=== PATIENT | male | born 1955 | race Caucasian/White ===

== ENCOUNTER 2018-05-08 09:06 | Emergency (ER) | payer MEDICARE, OTHER ==
[~2018-05-08] VITALS: Ht 182.9 cm; Wt 84.1 kg
[~2018-05-08 09:06] MED LIST: ATOR20TA66 PO; FOLI1TAB16 PO; PANT40TA4 PO; RIVA20TA PO; THI100T PO
[2018-05-08] MEDS ORDERED: morphine 4 MG/ML inj SYRINge IV ONE ×2 (09:50→11:55)
[2018-05-08] MEDS ORDERED: ondansetron/PF 4mg/2ml inj IV ONE ×2 (09:50→11:55)
[2018-05-08] MEDS ORDERED: famotidine/PF 10 mg/ml inj IV ONE (09:50)
[2018-05-08] MEDS ORDERED: normal saline 1000ML IV soln IVB ONE (09:50)
[2018-05-08 09:52] LABS: BASOPHILS % (AUTO) 0.1 % (0-1); EOSINOPHILS # (AUTO) 0.1 X10'3 (0-0.9); EOSINOPHILS % (AUTO) 1.2 % (0-6); HEMATOCRIT 51.6 % (42.0-52.0); HEMOGLOBIN 17.6 g/dl (14.0-17.9); LYMPHOCYTES # (AUTO) 2.6 X10'3 (1.1-4.8); LYMPHOCYTES % (AUTO) 21.7 % (21-51); MEAN CORPUSCULAR HEMOGLOBIN 31.9 PG (27.0-31.0); MEAN CORPUSCULAR HGB CONC 34.2 % (33.0-36.5); MEAN CORPUSCULAR VOLUME 93.5 FL (78-98); MEAN PLATELET VOLUME 8.4 FL (7.4-10.4); MONOCYTES # (AUTO) 0.8 X10'3 (0-0.9); NEUTROPHILS # (AUTO) 8.3 X10'3 (1.8-7.7); PLATELET COUNT 273 X10'3 (140-440); RED BLOOD COUNT 5.52 X10'6 (4.70-6.10); RED CELL DISTRIBUTION WIDTH 12.3 % (11.5-14.5); WHITE BLOOD COUNT 11.8 X10'3 (4.5-11.0)
[2018-05-08 10:01] LABS: PROTHROMBIN TIME 10.3 SECONDS (9.0-12.0)
[2018-05-08 10:06] LABS: ALANINE AMINOTRANSFERASE 36 U/L (12-78); ALBUMIN 4.2 G/DL (3.4-5.0); ALKALINE PHOSPHATASE 87 IU/L (46-116); ANION GAP 12 (8-16); ASPARTATE AMINO TRANSFERASE 27 U/L (10-37); BILIRUBIN,TOTAL 1.5 MG/DL (0.1-1.0); BLOOD UREA NITROGEN 15 MG/DL (7-18); BUN/CREATININE RATIO 13.3 (5.4-32.0); CALCIUM 9.9 MG/DL (8.5-10.1); CHLORIDE 100 MMOL/L (99-107); CREATININE 1.13 MG/DL (0.60-1.10); ETHANOL < 0.010 GM/DL (0.0-0.010); GLUCOSE 137 MG/DL (70-104); LIPASE 291 U/L (73-393); POTASSIUM 4.7 MMOL/L (3.5-5.1); SODIUM 137 MMOL/L (135-145); TOTAL CARBON DIOXIDE 25.5 MMOL/L (24-32); TOTAL PROTEIN 8.4 G/DL (6.4-8.2); eGFR 66 ML/MIN
[2018-05-08] MEDS ORDERED: PROC25SU31 RC (13:07)
[2018-05-08] MEDS ORDERED: PANT-47 PO (13:07)
[2018-05-08] MEDS ORDERED: HYDR-3965 PO (13:08)
[2018-05-08 13:54] VITALS: BP 119/67
== END 2018-05-08 14:11 | disposition home or self-care (01) ==
LOC: ER 09:06
DX: R10.13 Epigastric pain (principal); R11.10 Vomiting, unspecified; I10 Essential (primary) hypertension; J44.9 Chronic obstructive pulmonary disease, unspecified; M19.90 Unspecified osteoarthritis, unspecified site; F17.200 Nicotine dependence, unspecified, uncomplicated; Z79.899 Other long term (current) drug therapy
CPT/HCPCS: 36415; 76700; 80053; 80320; 83690; 85025; 85610; 96361; 96374; 96375; 96376; 99285; J2270; J2405; J3490; J7030

== ENCOUNTER 2018-07-25 16:53 | Inpatient (IN) | payer MEDICARE, OTHER ==
[~2018-07-25] VITALS: Ht 182.9 cm; Wt 89.5 kg
[~2018-07-25 16:53] MED LIST changes: +PANT-47 PO
[2018-07-25 17:32] LABS: BASOPHILS # (AUTO) 0.1 X10'3 (0-0.2); BASOPHILS % (AUTO) 0.4 % (0-1); EOSINOPHILS % (AUTO) 0.1 % (0-6); HEMATOCRIT 55.4 % (42.0-52.0); LYMPHOCYTES # (AUTO) 1.1 X10'3 (1.1-4.8); LYMPHOCYTES % (AUTO) 8.3 % (21-51); MEAN CORPUSCULAR HGB CONC 33.9 % (33.0-36.5); MEAN CORPUSCULAR VOLUME 94.6 FL (78-98); MEAN PLATELET VOLUME 8.8 FL (7.4-10.4); MONOCYTES # (AUTO) 0.7 X10'3 (0-0.9); NEUTROPHILS # (AUTO) 11.9 X10'3 (1.8-7.7); NEUTROPHILS % (AUTO) 86.2 % (42-75); PLATELET COUNT 271 X10'3 (140-440); RED BLOOD COUNT 5.86 X10'6 (4.70-6.10); WHITE BLOOD COUNT 13.8 X10'3 (4.5-11.0)
[2018-07-25] MEDS ORDERED: morphine 4 MG/ML inj SYRINge IV ONE ×2 (17:35→18:25)
[2018-07-25] MEDS ORDERED: ondansetron/PF 4mg/2ml inj IV ONE (17:35)
[2018-07-25] MEDS ORDERED: normal saline 1000ML IV soln IVB ONE (17:35)
[2018-07-25 17:37] LABS: HEMOGLOBIN 18.8 g/dl (14.0-17.9)
[2018-07-25 17:42] LABS: PARTIAL THROMBOPLASTIN TIME 28 SECONDS (22-32); PROTHROMBIN TIME 10.5 SECONDS (9.0-12.0)
[2018-07-25 17:47] LABS: ALANINE AMINOTRANSFERASE 31 U/L (12-78); ALBUMIN 4.3 G/DL (3.4-5.0); ALKALINE PHOSPHATASE 98 IU/L (46-116); ANION GAP 15 (8-16); ASPARTATE AMINO TRANSFERASE 21 U/L (10-37); BILIRUBIN,TOTAL 1.5 MG/DL (0.1-1.0); BLOOD UREA NITROGEN 15 MG/DL (7-18); BUN/CREATININE RATIO 13.6 (5.4-32.0); CHLORIDE 98 MMOL/L (99-107); GLUCOSE 158 MG/DL (70-104); POTASSIUM 4.5 MMOL/L (3.5-5.1); SODIUM 134 MMOL/L (135-145); TOTAL CARBON DIOXIDE 21.4 MMOL/L (24-32); TOTAL PROTEIN 8.5 G/DL (6.4-8.2); eGFR 68 ML/MIN
[2018-07-25 19:44] LABS: LIPASE 6876 U/L (73-393)
[2018-07-25] MEDS ORDERED: normal saline 1000ml 1,000 ML IV ONE ×2 (20:25)
[2018-07-25] MEDS ORDERED: temazepam 15mg capsule PO PRN (21:00)
[2018-07-25] MEDS ORDERED: LORazepam 2 mg/ml vial IV ONE (21:10)
[2018-07-25] MEDS ORDERED: metoprolol tartrate 1mg/ml inj IV ONE (21:30)
[2018-07-25] MEDS ORDERED: folic acid inj. 2 MG, thiamine inj. 100 MG, MVI, adult No.4 with vit. K 10 ML in dextro... IV SCH ×8 (22:55→23:25)
[2018-07-25] MEDS ORDERED: dicyclomine 10 MG capsule PO PRN (22:55)
[2018-07-25] MEDS ORDERED: morphine 2 MG/ML inj. syringe IV PRN (22:55)
[2018-07-25] MEDS ORDERED: bisacodyl 10mg suppository rectal RC PRN (22:55)
[2018-07-25] MEDS ORDERED: HYDROmorphone inj. 0.5 MG/0.5 ML DISP.SYRIN IV PRN ×2 (22:55)
[2018-07-25] MEDS ORDERED: haloperidol lactate 5mg/ml inj IM PRN (22:55)
[2018-07-25] MEDS ORDERED: acetaminophen 325mg tablet PO PRN ×2 (22:55)
[2018-07-25] MEDS ORDERED: HYDROcodone/acetaminophen 5mg/325mg tablet PO PRN (22:55)
[2018-07-25] MEDS ORDERED: acetaminophen 650mg rectal suppository RC PRN (22:55)
[2018-07-25] MEDS ORDERED: diphenhydrAMINE 50 mg/ml inj IV PRN (22:55)
[2018-07-25] MEDS ORDERED: atenolol 50mg tablet PO SCH (22:55)
[2018-07-25] MEDS ORDERED: thiamine inj. 100 MG in normal saline 100ml IV soln 100 ML IV ONE (22:55)
[2018-07-25] MEDS ORDERED: loperamide 2mg capsule PO ONE (22:55)
[2018-07-25] MEDS ORDERED: cyclobenzaprine 10mg tablet PO PRN (22:55)
[2018-07-25] MEDS ORDERED: metoclopramide 5 mg/ml inj IV PRN (22:55)
[2018-07-25] MEDS ORDERED: mag hydrox/Alum hydrox/simeth 30ml oral suspension PO PRN ×2 (22:55)
[2018-07-25 23:50] LABS: D-DIMER 1.22 MG/L FEU (0-0.50); PARTIAL THROMBOPLASTIN TIME 28 SECONDS (22-32); PROTHROMBIN TIME 10.7 SECONDS (9.0-12.0)
[2018-07-25] MEDS: normal saline 1000ml 1,000 ML IV SCH (23:54)
[2018-07-26 02:10] VITALS: BP 156/96
[2018-07-26] MEDS: normal saline 1000ml 1,000 ML IV SCH ×3 (02:33→21:35)
[2018-07-26] MEDS: morphine 2 MG/ML inj. syringe IV PRN ×2 (02:38→12:16)
[2018-07-26 03:15] VITALS: BP 153/98
[2018-07-26] MEDS ORDERED: diltiazem 5mg/ml 5ml inj. IV ONE ×2 (04:50→04:52)
[2018-07-26] MEDS: LORazepam 2 mg/ml vial IV PRN ×4 (04:58→21:35)
[2018-07-26 05:48] LABS: BASOPHILS % (AUTO) 0.2 % (0-1); EOSINOPHILS % (AUTO) 0.2 % (0-6); HEMATOCRIT 46.7 % (42.0-52.0); LYMPHOCYTES # (AUTO) 0.9 X10'3 (1.1-4.8); LYMPHOCYTES % (AUTO) 6.8 % (21-51); MEAN CORPUSCULAR HEMOGLOBIN 32.3 PG (27.0-31.0); MEAN CORPUSCULAR HGB CONC 34.4 % (33.0-36.5); MEAN CORPUSCULAR VOLUME 93.9 FL (78-98); MONOCYTES # (AUTO) 0.7 X10'3 (0-0.9); MONOCYTES % (AUTO) 5.3 % (2-12); NEUTROPHILS # (AUTO) 11.5 X10'3 (1.8-7.7); NEUTROPHILS % (AUTO) 87.5 % (42-75); PLATELET COUNT 234 X10'3 (140-440); RED BLOOD COUNT 4.97 X10'6 (4.70-6.10); RED CELL DISTRIBUTION WIDTH 13.6 % (11.5-14.5); WHITE BLOOD COUNT 13.1 X10'3 (4.5-11.0)
[2018-07-26 06:03] LABS: ALANINE AMINOTRANSFERASE 20 U/L (12-78); ALBUMIN 3.1 G/DL (3.4-5.0); ALBUMIN/GLOBULIN RATIO 0.9 (1.1-1.5); ALKALINE PHOSPHATASE 75 IU/L (46-116); ANION GAP 8 (8-16); ASPARTATE AMINO TRANSFERASE 19 U/L (10-37); BILIRUBIN,TOTAL 1.5 MG/DL (0.1-1.0); BLOOD UREA NITROGEN 11 MG/DL (7-18); BUN/CREATININE RATIO 13.8 (5.4-32.0); CALCIUM 8.4 MG/DL (8.5-10.1); CHLORIDE 101 MMOL/L (99-107); GLUCOSE 166 MG/DL (70-104); POTASSIUM 3.8 MMOL/L (3.5-5.1); SODIUM 134 MMOL/L (135-145); TOTAL CARBON DIOXIDE 24.9 MMOL/L (24-32); TOTAL PROTEIN 6.6 G/DL (6.4-8.2); eGFR > 90 ML/MIN
[2018-07-26 06:06] LABS: MAGNESIUM 1.6 MG/DL (1.5-2.4); PHOSPHORUS 2.4 MG/DL (2.3-4.5)
[2018-07-26 06:11] LABS: INR 1.1 INR; PROTHROMBIN TIME 10.9 SECONDS (9.0-12.0)
[2018-07-26 06:42] LABS: AMYLASE 914 U/L (25-115); LIPASE 6782 U/L (73-393)
[2018-07-26 08:00] VITALS: BP 140/86
[2018-07-26] MEDS: docusate sod 100mg capsule PO SCH ×2 (09:13→19:18)
[2018-07-26] MEDS: nicotine 21mg patch - 24 hr TD SCH (09:13)
[2018-07-26] MEDS: atenolol 25mg tablet PO SCH (09:13)
[2018-07-26] MEDS: enoxaparin 80mg/0.8ml syringe SUBCUT SCH ×2 (09:14→19:18)
[2018-07-26] MEDS: pantoprazole 40 MG vial IV SCH ×2 (09:25→19:18)
[2018-07-26 12:00] VITALS: BP 135/82
[2018-07-26] MEDS ORDERED: LORazepam 2 mg/ml vial IV PRN (13:10)
[2018-07-26] MEDS ORDERED: folic acid inj. 2 MG, thiamine inj. 100 MG, MVI, adult No.4 with vit. K 10 ML in dextro... IV SCH ×4 (15:00)
[2018-07-26 20:00] VITALS: BP 146/94
[2018-07-27] VITALS: BP 141/91
[2018-07-27] MEDS: morphine 2 MG/ML inj. syringe IV PRN ×4 (01:53→19:56)
[2018-07-27 05:26] LABS: BASOPHILS # (AUTO) 0.2 X10'3 (0-0.2); BASOPHILS % (AUTO) 1.3 % (0-1); EOSINOPHILS # (AUTO) 0.2 X10'3 (0-0.9); EOSINOPHILS % (AUTO) 1.5 % (0-6); HEMATOCRIT 46.2 % (42.0-52.0); HEMOGLOBIN 15.8 g/dl (14.0-17.9); LYMPHOCYTES # (AUTO) 1.9 X10'3 (1.1-4.8); LYMPHOCYTES % (AUTO) 15.7 % (21-51); MEAN CORPUSCULAR HEMOGLOBIN 32.1 PG (27.0-31.0); MEAN CORPUSCULAR HGB CONC 34.3 % (33.0-36.5); MEAN CORPUSCULAR VOLUME 93.5 FL (78-98); MEAN PLATELET VOLUME 9.6 FL (7.4-10.4); MONOCYTES # (AUTO) 0.8 X10'3 (0-0.9); MONOCYTES % (AUTO) 6.9 % (2-12); NEUTROPHILS # (AUTO) 8.9 X10'3 (1.8-7.7); NEUTROPHILS % (AUTO) 74.6 % (42-75); PLATELET COUNT 221 X10'3 (140-440); RED BLOOD COUNT 4.94 X10'6 (4.70-6.10); RED CELL DISTRIBUTION WIDTH 13.1 % (11.5-14.5); WHITE BLOOD COUNT 11.9 X10'3 (4.5-11.0)
[2018-07-27 05:36] LABS: PROTHROMBIN TIME 10.8 SECONDS (9.0-12.0)
[2018-07-27 05:46] LABS: ALANINE AMINOTRANSFERASE 20 U/L (12-78); ALBUMIN 2.9 G/DL (3.4-5.0); ALBUMIN/GLOBULIN RATIO 0.7 (1.1-1.5); ALKALINE PHOSPHATASE 77 IU/L (46-116); AMYLASE 333 U/L (25-115); ANION GAP 7 (8-16); ASPARTATE AMINO TRANSFERASE 17 U/L (10-37); BILIRUBIN,TOTAL 1.8 MG/DL (0.1-1.0); BLOOD UREA NITROGEN 9 MG/DL (7-18); BUN/CREATININE RATIO 11.4 (5.4-32.0); CALCIUM 8.4 MG/DL (8.5-10.1); CHLORIDE 100 MMOL/L (99-107); CREATININE 0.79 MG/DL (0.60-1.10); GLUCOSE 111 MG/DL (70-104); LIPASE 1423 U/L (73-393); MAGNESIUM 1.8 MG/DL (1.5-2.4); PHOSPHORUS 1.7 MG/DL (2.3-4.5); POTASSIUM 3.4 MMOL/L (3.5-5.1); SODIUM 133 MMOL/L (135-145); TOTAL CARBON DIOXIDE 25.9 MMOL/L (24-32); TOTAL PROTEIN 6.8 G/DL (6.4-8.2); eGFR > 90 ML/MIN
[2018-07-27] MEDS: nicotine 21mg patch - 24 hr TD SCH (07:29)
[2018-07-27] MEDS: enoxaparin 80mg/0.8ml syringe SUBCUT SCH ×2 (07:29→20:09)
[2018-07-27] MEDS: atenolol 25mg tablet PO SCH (07:29)
[2018-07-27] MEDS: docusate sod 100mg capsule PO SCH ×2 (07:29→19:56)
[2018-07-27] MEDS: pantoprazole 40 MG vial IV SCH ×2 (07:30→19:56)
[2018-07-27 07:44] VITALS: BP 133/95
[2018-07-27] MEDS ORDERED: potassium Cl 20 mEq SR tablet PO PRN (11:00)
[2018-07-27] MEDS ORDERED: magnesium 4gm in 100ml NS 100 ML IV PRN (11:00)
[2018-07-27] MEDS ORDERED: potassium Cl 40MEQ/NS 500ml 500 ML IV PRN ×2 (11:00)
[2018-07-27] MEDS ORDERED: magnesium Cl slow-release 64mg tablet PO PRN (11:00)
[2018-07-27] MEDS: Neutra Phos packet PO SCH ×2 (11:22→20:10)
[2018-07-27] MEDS: potassium Cl 20 mEq SR tablet PO PRN ×3 (11:22→19:57)
[2018-07-27] MEDS: folic acid inj. 2 MG, thiamine inj. 100 MG, MVI, adult No.4 with vit. K 10 ML in dextro... IV SCH ×4 (11:22)
[2018-07-27 12:00] VITALS: BP 125/90
[2018-07-27] MEDS: normal saline 1000ml 1,000 ML IV SCH (15:45)
[2018-07-27 20:00] VITALS: BP 153/95
[2018-07-28] VITALS: BP 132/86
[2018-07-28] MEDS: normal saline 1000ml 1,000 ML IV SCH ×3 (00:17→20:54)
[2018-07-28] MEDS: morphine 2 MG/ML inj. syringe IV PRN ×5 (00:39→21:11)
[2018-07-28 05:35] LABS: PROTHROMBIN TIME 10.7 SECONDS (9.0-12.0)
[2018-07-28 05:49] LABS: ALANINE AMINOTRANSFERASE 22 U/L (12-78); ALBUMIN 2.7 G/DL (3.4-5.0); ALBUMIN/GLOBULIN RATIO 0.7 (1.1-1.5); ALKALINE PHOSPHATASE 68 IU/L (46-116); AMYLASE 147 U/L (25-115); ANION GAP 9 (8-16); ASPARTATE AMINO TRANSFERASE 15 U/L (10-37); BLOOD UREA NITROGEN 10 MG/DL (7-18); BUN/CREATININE RATIO 12.7 (5.4-32.0); CALCIUM 8.6 MG/DL (8.5-10.1); CHLORIDE 103 MMOL/L (99-107); CREATININE 0.79 MG/DL (0.60-1.10); GLUCOSE 95 MG/DL (70-104); LIPASE 864 U/L (73-393); MAGNESIUM 1.9 MG/DL (1.5-2.4); PHOSPHORUS 2.7 MG/DL (2.3-4.5); POTASSIUM 3.7 MMOL/L (3.5-5.1); SODIUM 136 MMOL/L (135-145); TOTAL PROTEIN 6.5 G/DL (6.4-8.2); eGFR > 90 ML/MIN
[2018-07-28 05:56] LABS: BASOPHILS # (AUTO) 0.1 X10'3 (0-0.2); BASOPHILS % (AUTO) 0.8 % (0-1); EOSINOPHILS # (AUTO) 0.6 X10'3 (0-0.9); EOSINOPHILS % (AUTO) 6.2 % (0-6); HEMATOCRIT 44.5 % (42.0-52.0); HEMOGLOBIN 15.2 g/dl (14.0-17.9); LYMPHOCYTES # (AUTO) 2.1 X10'3 (1.1-4.8); LYMPHOCYTES % (AUTO) 22.7 % (21-51); MEAN CORPUSCULAR HEMOGLOBIN 32.1 PG (27.0-31.0); MEAN CORPUSCULAR HGB CONC 34.1 % (33.0-36.5); MEAN CORPUSCULAR VOLUME 94.2 FL (78-98); MONOCYTES # (AUTO) 0.8 X10'3 (0-0.9); MONOCYTES % (AUTO) 8.4 % (2-12); NEUTROPHILS # (AUTO) 5.8 X10'3 (1.8-7.7); NEUTROPHILS % (AUTO) 61.9 % (42-75); PLATELET COUNT 229 X10'3 (140-440); RED BLOOD COUNT 4.73 X10'6 (4.70-6.10); RED CELL DISTRIBUTION WIDTH 13.1 % (11.5-14.5); WHITE BLOOD COUNT 9.4 X10'3 (4.5-11.0)
[2018-07-28 08:00] VITALS: BP 147/100
[2018-07-28] MEDS: Neutra Phos packet PO SCH ×2 (09:02→13:26)
[2018-07-28] MEDS: docusate sod 100mg capsule PO SCH ×2 (09:02→20:52)
[2018-07-28] MEDS: pantoprazole 40 MG vial IV SCH ×2 (09:02→20:52)
[2018-07-28] MEDS: nicotine 21mg patch - 24 hr TD SCH (09:03)
[2018-07-28] MEDS: enoxaparin 80mg/0.8ml syringe SUBCUT SCH ×2 (09:04→20:52)
[2018-07-28] MEDS: atenolol 25mg tablet PO SCH (09:08)
[2018-07-28] MEDS: folic acid inj. 2 MG, thiamine inj. 100 MG, MVI, adult No.4 with vit. K 10 ML in dextro... IV SCH ×4 (10:33)
[2018-07-28 11:00] VITALS: BP 143/78
[2018-07-28 18:00] VITALS: BP 144/91
[2018-07-28] MEDS ORDERED: HYDROmorphone 1 mg/ml syringe IV PRN ×2 (21:00→21:01)
[2018-07-29] VITALS: BP 147/78
[2018-07-29] MEDS: normal saline 1000ml 1,000 ML IV SCH ×2 (01:23→11:26)
[2018-07-29] MEDS: morphine 2 MG/ML inj. syringe IV PRN ×3 (01:51→11:27)
[2018-07-29 05:33] LABS: ALANINE AMINOTRANSFERASE 24 U/L (12-78); ALBUMIN 2.7 G/DL (3.4-5.0); ALBUMIN/GLOBULIN RATIO 0.7 (1.1-1.5); ALKALINE PHOSPHATASE 71 IU/L (46-116); AMYLASE 140 U/L (25-115); ANION GAP 10 (8-16); ASPARTATE AMINO TRANSFERASE 20 U/L (10-37); BILIRUBIN,TOTAL 0.9 MG/DL (0.1-1.0); BLOOD UREA NITROGEN 7 MG/DL (7-18); BUN/CREATININE RATIO 9.7 (5.4-32.0); CALCIUM 8.6 MG/DL (8.5-10.1); CHLORIDE 103 MMOL/L (99-107); CREATININE 0.72 MG/DL (0.60-1.10); GLUCOSE 101 MG/DL (70-104); LIPASE 849 U/L (73-393); MAGNESIUM 1.8 MG/DL (1.5-2.4); PHOSPHORUS 3.3 MG/DL (2.3-4.5); POTASSIUM 3.4 MMOL/L (3.5-5.1); SODIUM 137 MMOL/L (135-145); TOTAL CARBON DIOXIDE 24.2 MMOL/L (24-32); TOTAL PROTEIN 6.5 G/DL (6.4-8.2); eGFR > 90 ML/MIN
[2018-07-29 05:49] LABS: BASOPHILS # (AUTO) 0.1 X10'3 (0-0.2); BASOPHILS % (AUTO) 1.6 % (0-1); EOSINOPHILS # (AUTO) 0.6 X10'3 (0-0.9); EOSINOPHILS % (AUTO) 7.4 % (0-6); HEMATOCRIT 44.9 % (42.0-52.0); HEMOGLOBIN 15.5 g/dl (14.0-17.9); LYMPHOCYTES # (AUTO) 2.2 X10'3 (1.1-4.8); LYMPHOCYTES % (AUTO) 27.1 % (21-51); MEAN CORPUSCULAR HEMOGLOBIN 32.7 PG (27.0-31.0); MEAN CORPUSCULAR HGB CONC 34.6 % (33.0-36.5); MEAN CORPUSCULAR VOLUME 94.3 FL (78-98); MEAN PLATELET VOLUME 10.3 FL (7.4-10.4); MONOCYTES # (AUTO) 0.7 X10'3 (0-0.9); MONOCYTES % (AUTO) 8.7 % (2-12); NEUTROPHILS # (AUTO) 4.5 X10'3 (1.8-7.7); NEUTROPHILS % (AUTO) 55.2 % (42-75); PLATELET COUNT 243 X10'3 (140-440); RED BLOOD COUNT 4.76 X10'6 (4.70-6.10); RED CELL DISTRIBUTION WIDTH 12.4 % (11.5-14.5); WHITE BLOOD COUNT 8.1 X10'3 (4.5-11.0)
[2018-07-29] MEDS: nicotine 21mg patch - 24 hr TD SCH (07:08)
[2018-07-29] MEDS: magnesium hydroxide 30ml (MOM) UD suspension PO PRN (07:09)
[2018-07-29] MEDS: potassium Cl 20 mEq SR tablet PO PRN ×3 (07:10→15:39)
[2018-07-29] MEDS: pantoprazole 40 MG vial IV SCH ×2 (07:10→20:21)
[2018-07-29] MEDS: enoxaparin 80mg/0.8ml syringe SUBCUT SCH ×2 (07:10→20:21)
[2018-07-29] MEDS: atenolol 25mg tablet PO SCH (07:10)
[2018-07-29] MEDS: docusate sod 100mg capsule PO SCH ×2 (07:10→20:20)
[2018-07-29 07:40] VITALS: BP 139/86
[2018-07-29 08:02] LABS: PROTHROMBIN TIME 10.8 SECONDS (9.0-12.0)
[2018-07-29 10:50] VITALS: BP 130/80
[2018-07-29] MEDS: ondansetron/PF 4mg/2ml inj IV PRN (11:26)
[2018-07-29] MEDS: folic acid inj. 2 MG, thiamine inj. 100 MG, MVI, adult No.4 with vit. K 10 ML in dextro... IV SCH ×4 (11:26)
[2018-07-29] MEDS: HYDROcodone/acetaminophen 10/325mg tab PO PRN ×2 (15:40→20:20)
[2018-07-29] MEDS: diphenhydrAMINE 25mg capsule PO PRN ×2 (17:01→22:55)
[2018-07-29 18:00] VITALS: BP 99/65
[2018-07-30 00:07] VITALS: BP 137/93
[2018-07-30] MEDS: normal saline 1000ml 1,000 ML IV SCH (03:36)
[2018-07-30] MEDS: HYDROcodone/acetaminophen 10/325mg tab PO PRN (04:25)
[2018-07-30] MEDS: ondansetron/PF 4mg/2ml inj IV PRN (04:27)
[2018-07-30] MEDS: magnesium hydroxide 30ml (MOM) UD suspension PO PRN (04:54)
[2018-07-30 06:19] LABS: BASOPHILS % (AUTO) 0.4 % (0-1); EOSINOPHILS # (AUTO) 0.8 X10'3 (0-0.9); EOSINOPHILS % (AUTO) 9.7 % (0-6); HEMATOCRIT 40.1 % (42.0-52.0); HEMOGLOBIN 13.9 g/dl (14.0-17.9); LYMPHOCYTES # (AUTO) 2.5 X10'3 (1.1-4.8); LYMPHOCYTES % (AUTO) 29.4 % (21-51); MEAN CORPUSCULAR HEMOGLOBIN 32.5 PG (27.0-31.0); MEAN CORPUSCULAR HGB CONC 34.8 % (33.0-36.5); MEAN CORPUSCULAR VOLUME 93.3 FL (78-98); MEAN PLATELET VOLUME 9.4 FL (7.4-10.4); MONOCYTES # (AUTO) 0.8 X10'3 (0-0.9); MONOCYTES % (AUTO) 9.4 % (2-12); NEUTROPHILS # (AUTO) 4.3 X10'3 (1.8-7.7); NEUTROPHILS % (AUTO) 51.1 % (42-75); PLATELET COUNT 248 X10'3 (140-440); RED BLOOD COUNT 4.29 X10'6 (4.70-6.10); RED CELL DISTRIBUTION WIDTH 12.6 % (11.5-14.5); WHITE BLOOD COUNT 8.4 X10'3 (4.5-11.0)
[2018-07-30 06:24] LABS: PROTHROMBIN TIME 10.4 SECONDS (9.0-12.0)
[2018-07-30 06:31] LABS: ALANINE AMINOTRANSFERASE 30 U/L (12-78); ALBUMIN 2.6 G/DL (3.4-5.0); ALBUMIN/GLOBULIN RATIO 0.7 (1.1-1.5); ALKALINE PHOSPHATASE 66 IU/L (46-116); AMYLASE 119 U/L (25-115); ANION GAP 7 (8-16); ASPARTATE AMINO TRANSFERASE 23 U/L (10-37); BILIRUBIN,TOTAL 0.6 MG/DL (0.1-1.0); BLOOD UREA NITROGEN 6 MG/DL (7-18); BUN/CREATININE RATIO 6.9 (5.4-32.0); CALCIUM 8.9 MG/DL (8.5-10.1); CHLORIDE 102 MMOL/L (99-107); CREATININE 0.87 MG/DL (0.60-1.10); GLUCOSE 144 MG/DL (70-104); LIPASE 750 U/L (73-393); MAGNESIUM 1.8 MG/DL (1.5-2.4); PHOSPHORUS 4.1 MG/DL (2.3-4.5); POTASSIUM 3.8 MMOL/L (3.5-5.1); SODIUM 137 MMOL/L (135-145); TOTAL CARBON DIOXIDE 27.6 MMOL/L (24-32); TOTAL PROTEIN 6.1 G/DL (6.4-8.2); eGFR 89 ML/MIN
[2018-07-30 07:10] VITALS: BP 120/79
[2018-07-30] MEDS: nicotine 21mg patch - 24 hr TD SCH (08:00)
[2018-07-30] MEDS: docusate sod 100mg capsule PO SCH (08:20)
[2018-07-30] MEDS: pantoprazole 40 MG vial IV SCH (08:20)
[2018-07-30] MEDS: atenolol 25mg tablet PO SCH (08:21)
[2018-07-30] MEDS: enoxaparin 80mg/0.8ml syringe SUBCUT SCH (08:22)
[2018-07-30 11:00] VITALS: BP 127/73
[2018-07-30] MEDS ORDERED: FOLI1TAB16 PO (14:16)
[2018-07-30] MEDS ORDERED: ATEN-168 PO (14:16)
[2018-07-30] MEDS ORDERED: MULT-1179 PO (14:16)
[2018-07-30] MEDS ORDERED: THI100T PO (14:16)
[2018-07-30] MEDS ORDERED: NICO-687 TD (14:16)
[2018-07-31] MEDS ORDERED: folic acid 1mg tablet PO SCH (08:00)
[2018-07-31] MEDS ORDERED: thiamine 100mg tablet PO SCH (08:00)
[2018-07-31] MEDS ORDERED: multivitamins, therapeutics tablet PO SCH (08:00)
== END 2018-07-30 14:53 | disposition home or self-care (01) | DRG 308 ==
LOC: ER 16:54 → ED HOLD 22:54 → EDBEDREQSVC 07-26 01:10 → EDBEDREQ 07-26 01:10 → SUR 3N 07-26 02:05
PROVIDERS: ADMIT Family Medicine; ATTEND Family Medicine
DX: I48.92 Unspecified atrial flutter (principal); K85.20 Alcohol induced acute pancreatitis without necrosis or infection; I16.1 Hypertensive emergency; K86.1 Other chronic pancreatitis; E87.1 Hypo-osmolality and hyponatremia; E87.6 Hypokalemia; F10.20 Alcohol dependence, uncomplicated; I10 Essential (primary) hypertension; J44.9 Chronic obstructive pulmonary disease, unspecified; K76.0 Fatty (change of) liver, not elsewhere classified; M19.90 Unspecified osteoarthritis, unspecified site; R00.0 Tachycardia, unspecified; Z79.899 Other long term (current) drug therapy; Z83.3 Family history of diabetes mellitus
CPT/HCPCS: 36415; 71045; 74176; 80053; 82150; 83605; 83690; 83735; 83880; 84100; 84145; 84484; 85025; 85379; 85610; 85730; 87040; 87070; 93005; 93306; 96361; 96374; 96375; 96376; 99285; C9113; J1170; J1650; J2060; J2270; J2405; J3411; J3490; J7030; J7060; Q0163

== ENCOUNTER 2023-02-24 16:45 | Inpatient (IN) | payer MEDICARE ==
[~2023-02-24] VITALS: Ht 182.9 cm; Wt 92.4 kg
[~2023-02-24 16:45] MED LIST changes: +ATEN-168 PO; -ATOR20TA66 PO; -FOLI1TAB16 PO; +FOLI1TAB27 PO; +MULT-25 PO; +NICO-687 TD; -PANT40TA4 PO; -RIVA20TA PO
[2023-02-24 17:17] LABS: BASOPHILS % (AUTO) 0.2 % (0-1); EOSINOPHILS % (AUTO) 0 % (0-6); HEMOGLOBIN 15.3 g/dl (14.0-17.9); LYMPHOCYTES # (AUTO) 1.2 X10'3 (1.1-4.8); MEAN CORPUSCULAR HEMOGLOBIN 28.9 PG (27.0-31.0); MEAN CORPUSCULAR HGB CONC 32.6 g/dL (33.0-36.5); MEAN CORPUSCULAR VOLUME 88.8 FL (78-98); MEAN PLATELET VOLUME 8.7 FL (7.4-10.4); MONOCYTES # (AUTO) 0.9 X10'3 (0-0.9); NEUTROPHILS # (AUTO) 10.3 X10'3 (1.8-7.7); NEUTROPHILS % (AUTO) 82.8 % (42-75); PLATELET COUNT 195 X10'3 (140-440); RED CELL DISTRIBUTION WIDTH 14.5 % (11.5-14.5); WHITE BLOOD COUNT 12.4 X10'3 (4.5-11.0)
[2023-02-24 17:35] LABS: ALBUMIN 3.2 G/DL (3.4-5.0); ALBUMIN/GLOBULIN RATIO 1.1 (1.1-1.5); ALKALINE PHOSPHATASE 93 IU/L (46-116); ANION GAP 13 (8-16); BILIRUBIN,TOTAL 2.4 MG/DL (0.1-1.0); BLOOD UREA NITROGEN 73 MG/DL (7-18); BUN/CREATININE RATIO 24.4 (10.0-20.0); CALCIUM 8.2 MG/DL (8.5-10.1); CHLORIDE 89 MMOL/L (99-107); CREATININE 2.99 MG/DL (0.60-1.10); ETHANOL < 0.010 GM/DL (0.0-0.010); GLUCOSE 124 MG/DL (70-104); LIPASE 406 U/L (73-393); POTASSIUM 5.2 MMOL/L (3.5-5.1); SODIUM 125 MMOL/L (135-145); TOTAL CARBON DIOXIDE 23.2 MMOL/L (24-32); eGFR 21 ML/MIN
[2023-02-24 18:07] LABS: ALANINE AMINOTRANSFERASE 2953 U/L (12-78); ASPARTATE AMINO TRANSFERASE 3496 U/L (10-37)
[2023-02-25] VITALS (15 sets, daily range): BP systolic 85–114; BP diastolic 40–91
[2023-02-25] MEDS ORDERED: normal saline 1000ml 1,000 ML IV ONE ×3 (00:55→05:00)
[2023-02-25] MEDS ORDERED: ondansetron/PF 4mg/2ml inj IV ONE (02:00)
[2023-02-25] MEDS ORDERED: morphine 2 MG/ML inj. syringe IV ONE (02:00)
[2023-02-25] MEDS ORDERED: piperacillin/tazo 3.375gm/50ml 50 ML IV STA (03:04)
[2023-02-25] MEDS ORDERED: normal saline 1000ml 1,000 ML IV SCH (03:05)
--- NOTE | 2023-02-25 03:31 | NUR ---
ASSUMED CARE OF PT. AFTER RECEIVING REPORT. PT. AWAKE DENIES ANY C/O PAIN AT THIS TIME.NS BOLUS INFUSING VIA IV LAC.
[2023-02-25 04:56] LABS: ALBUMIN 2.8 G/DL (3.4-5.0); ALBUMIN/GLOBULIN RATIO 1.1 (1.1-1.5); ALKALINE PHOSPHATASE 92 IU/L (46-116); BILIRUBIN,TOTAL 2.7 MG/DL (0.1-1.0); TOTAL PROTEIN 5.3 G/DL (6.4-8.2)
[2023-02-25 04:58] LABS: ALANINE AMINOTRANSFERASE 2171 U/L (12-78); ASPARTATE AMINO TRANSFERASE 1769 U/L (10-37)
[2023-02-25 05:13] LABS: BILIRUBIN,DIRECT 1.5 MG/DL (0-0.3)
[2023-02-25] MEDS: NORepinephrine 8mg/ 250ml NS 250 ML IV SCH ×3 (06:09→23:54)
--- NOTE | 2023-02-25 06:12 | NUR ---
hospitalist at bedside - levophed just started by TENNILLE RN - setting up for a central line for ER MD to insert.
[2023-02-25] MEDS ORDERED: pantoprazole 40mg IV 80 MG in normal saline 100ml IV soln 100 ML IV ONE (06:24)
--- NOTE | 2023-02-25 06:57 | NUR ---
CL PLACEMENT CONFIRMED VIA XRAY - PER MD EDITH MONROY TO USE - SWITCHING MEDICATION S TO CENTRAL LINE AT THIS TIME.
--- NOTE | 2023-02-25 07:17 | NUR ---
PT RESTING. AWAITING PROTONIX BOLUS FROM PHARMACY AT THIS TIME.
[2023-02-25] MEDS ORDERED: pantoprazole 40MG/NS 100ML BAG 100 ML IV SCH (07:30)
[2023-02-25] MEDS ORDERED: sod chloride 0.9% 10ml flush syringe IV ONE (08:00)
[2023-02-25] MEDS ORDERED: rocuronium 10mg/ml inj IV ONE (08:00)
[2023-02-25] MEDS ORDERED: etomidate 2mg/ml inj. ONE (08:00)
--- NOTE | 2023-02-25 08:02 | NUR ---
CHIVO AT BEDSIDE FOR EVAL\ADMISSION - REQUESTING REPEAT EKG
--- NOTE | 2023-02-25 09:10 | NUR ---
FAMILY CALLED AND PHONE CALL WAS TRANSFERRED TO PTS ROOM
[2023-02-25 09:28] LABS: ALANINE AMINOTRANSFERASE 1794 U/L (12-78); ALBUMIN 2.4 G/DL (3.4-5.0); ALKALINE PHOSPHATASE 83 IU/L (46-116); ANION GAP 15 (8-16); ASPARTATE AMINO TRANSFERASE 1336 U/L (10-37); BILIRUBIN,TOTAL 2.6 MG/DL (0.1-1.0); BLOOD UREA NITROGEN 90 MG/DL (7-18); BUN/CREATININE RATIO 24.1 (10.0-20.0); CALCIUM 7.7 MG/DL (8.5-10.1); CHLORIDE 94 MMOL/L (99-107); CREATININE 3.74 MG/DL (0.60-1.10); ETHANOL < 0.010 GM/DL (0.0-0.010); GLUCOSE 69 MG/DL (70-104); POTASSIUM 5.6 MMOL/L (3.5-5.1); SODIUM 128 MMOL/L (135-145); TOTAL CARBON DIOXIDE 19.4 MMOL/L (24-32); TOTAL PROTEIN 4.8 G/DL (6.4-8.2); eGFR 16 ML/MIN
[2023-02-25] MEDS ORDERED: acetaminophen 325mg tablet PO PRN (09:30)
[2023-02-25] MEDS: normal saline 1000ml 1,000 ML IV SCH ×3 (09:30→20:43)
[2023-02-25] MEDS ORDERED: potassium Cl 20 mEq SR tablet PO PRN ×2 (09:30)
[2023-02-25] MEDS ORDERED: magnesium Cl slow-release 64mg tablet PO PRN (09:30)
[2023-02-25] MEDS ORDERED: magnesium 4gm in 100ml NS 100 ML IV PRN (09:30)
[2023-02-25] MEDS ORDERED: magnesium 2GM in 50ml NS 50 ML IV PRN (09:30)
[2023-02-25] MEDS ORDERED: magnesium hydroxide 30ml (MOM) UD suspension PO PRN (09:30)
[2023-02-25] MEDS ORDERED: mag hydrox/Alum hydrox/simeth 30ml oral suspension PO PRN (09:30)
[2023-02-25] MEDS ORDERED: ondansetron/PF 4mg/2ml inj IV PRN (09:30)
[2023-02-25] MEDS ORDERED: potassium Cl 40MEQ/1/2NS 520ml 520 ML IV PRN (09:30)
--- NOTE | 2023-02-25 10:00 | NUR ---
Patient arrived to floor and transferred self to ICU bed. Patient placed on monitor with A.Fib RVR 130-150s; on Levophed drip. Patient alert and oriented with abd pain. Pt oriented to room with call light in reach.
[2023-02-25] MEDS ORDERED: amiodarone 150mg/dext, iso-os 100 ML IV ONE (10:30)
[2023-02-25] MEDS ORDERED: sodium polystyrene sulfonate 15gm/60ml oral suspension PO ONE (10:40)
[2023-02-25] MEDS ORDERED: vancomycin 1,750 MG in NS 350ml IV soln IV ONE (11:15)
[2023-02-25] MEDS: amiodarone/D5 360MG/200ML BAG 200 ML IV SCH ×2 (11:22→16:58)
[2023-02-25] MEDS: HYDROmorphone 1 mg/ml syringe IV PRN (11:42)
--- NOTE | 2023-02-25 12:07 | NUR ---
Initial: Per H&P pt admit for septic shock most likely d/t spontaneous bacterial peritonitis, ascites, NEAL, and shock liver. Per IR has been consulted for paracentesis and goat farmer to be consulted. Diet has just been advanced to regular from NPO, pending first meal. No documented BM though pt just admitted and with routine bowel care available. Will continue to follow closely and make recommendations as appropriate pending trends in PO intake. Recommendations: 1) Continue regular diet; change to Na restricted diet once serum Na is WNL to assist with prevention of fluid retention with ascites 2) Monitor need for ONS/additional protein 3) Routine bowel care 4) Scaled weight this admit; subsequent weekly scaled weights Addendum: 02/25/23 at [address] Amended: Links added.
[2023-02-25] MEDS ORDERED: NO HOME MEDS (12:29)
[2023-02-25 12:48] LABS: ABG BASE EXCESS -13.5 mmol/L (-2.0-2.0); ABG HCO3 11.1 mmol/L (22.0-26.0); ABG OXYGEN SATURATION 91.5 % (94-97); ABG PCO2 (T) 24.1 mmHg (35.0-48.0); ABG PO2 (T) 68.6 mmHg (75.0-100.0); ALLEN'S TEST POSITIVE; FCOHb 0.3 % (0.0-3.9); FMetHb 0.6 % (0.0-1.5); FO2Hb 90.7 % (94-97); PATIENT TEMPERATURE 36.2; TOTAL HEMOGLOBIN 19.3 G/dl (14.0-17.9)
[2023-02-25] MEDS ORDERED: SODIUM BICARB 150mEq/D5W 1L 1,000 ML IV ONE (13:00)
[2023-02-25] MEDS ORDERED: sodium bicarbonate (8.4%) inj. 1 MEQ/ML ML IV ONE (13:00)
[2023-02-25 15:10] LABS: BASOPHILS % (AUTO) 0 % (0-1); EOSINOPHILS % (AUTO) 0.6 % (0-6); HEMATOCRIT 49.4 % (42.0-52.0); LYMPHOCYTES # (AUTO) 0.6 X10'3 (1.1-4.8); LYMPHOCYTES % (AUTO) 7.4 % (21-51); MEAN CORPUSCULAR HEMOGLOBIN 29.2 PG (27.0-31.0); MEAN CORPUSCULAR HGB CONC 32.4 g/dL (33.0-36.5); MEAN PLATELET VOLUME 9.2 FL (7.4-10.4); MONOCYTES # (AUTO) 0.3 X10'3 (0-0.9); NEUTROPHILS # (AUTO) 6.9 X10'3 (1.8-7.7); PLATELET COUNT 185 X10'3 (140-440); RED BLOOD COUNT 5.49 X10'6 (4.70-6.10); RED CELL DISTRIBUTION WIDTH 14.9 % (11.5-14.5); WHITE BLOOD COUNT 7.8 X10'3 (4.5-11.0)
[2023-02-25 15:21] LABS: APTT 33 SECONDS (22-32)
--- NOTE | 2023-02-25 15:25 | NUR ---
Lactic Acid trending up to 7.5; Dr. Campbell called and notified. Creatine trending up and liver enzymes trending down. Continue supportive care with pressors by maintaining MAP >70. Orders to place a Franklin catheter as patient not making urine. ABG/Mixed VBG. Dr. Black who was consulting also notified of increased LA.
[2023-02-25 15:27] LABS: ALBUMIN 2.4 G/DL (3.4-5.0); ALKALINE PHOSPHATASE 69 IU/L (46-116); ANION GAP 21 (8-16); ASPARTATE AMINO TRANSFERASE 875 U/L (10-37); BILIRUBIN,TOTAL 2.6 MG/DL (0.1-1.0); BLOOD UREA NITROGEN 93 MG/DL (7-18); BUN/CREATININE RATIO 23.1 (10.0-20.0); CALCIUM 7.7 MG/DL (8.5-10.1); CHLORIDE 93 MMOL/L (99-107); CREATININE 4.02 MG/DL (0.60-1.10); GLUCOSE 100 MG/DL (70-104); MAGNESIUM 2.2 MG/DL (1.5-2.4); SODIUM 130 MMOL/L (135-145); TOTAL PROTEIN 4.8 G/DL (6.4-8.2); eGFR 15 ML/MIN
[2023-02-25 15:30] LABS: ALANINE AMINOTRANSFERASE 1226 U/L (12-78); POTASSIUM 5.4 MMOL/L (3.5-5.1)
[2023-02-25 15:33] LABS: CLARITY,URINE CLOUDY (Clear); COLOR,URINE YELLOW (Yellow); GLUCOSE, URINE NEGATIVE (Neg); KETONES,URINE NEGATIVE (Neg); LEUKOCYTE ESTERASE ,URINE NEGATIVE (Neg); NITRITES, URINE NEGATIVE (Neg); OCCULT BLOOD,URINE SMALL (Neg); PROTEIN,URINE 30 mg/dl (Neg)
[2023-02-25 15:48] LABS: UA COLLECTION TYPE STRAIGHT CATH
[2023-02-25 15:51] LABS: URINE AMPHETAMINE SCREEN POSITIVE (Neg); URINE BARBITUATE SCREEN NEGATIVE (Neg); URINE BENZODIAZEPINES SCREEN NEGATIVE (Neg); URINE CANNABINOID SCREEN NEGATIVE (Neg); URINE COCAINE SCREEN NEGATIVE (Neg); URINE METHADONE SCREEN NEGATIVE (Neg); URINE OPIATE SCREEN POSITIVE (Neg); URINE PHENCYCLIDINE SCREEN NEGATIVE (Neg)
[2023-02-25 15:52] LABS: RBC,URINE 0-2 /HPF (0-2)
[2023-02-25 15:53] LABS: BACTERIA,URINE 2+ /HPF (Neg); RENAL CELLS, URINE FEW /HPF; SQUAMOUS EPITHELIAL CELL,UR NONE SEEN /LPF (FEW); WBC CLUMPS,URINE FEW /HPF (NEGATIVE)
[2023-02-25 15:58] LABS: TOTAL CELLS COUNTED 100
[2023-02-25 15:59] LABS: NUCLEATED RED BLOOD CELLS 2 /100WBC (0-0); PLATELET ESTIMATE NORMAL
[2023-02-25 16:01] LABS: BURR CELLS 3+; POLYCHROMASIA FEW
[2023-02-25 16:24] LABS: ABG BASE EXCESS -9.3 mmol/L (-2.0-2.0); ABG HCO3 15.7 mmol/L (22.0-26.0); ABG OXYGEN SATURATION 93.7 % (94-97); ABG PCO2 (T) 31.3 mmHg (35.0-48.0); ABG PO2 (T) 75.4 mmHg (75.0-100.0); ALLEN'S TEST POSITIVE; FCOHb 0.7 % (0.0-3.9); FMetHb 0.6 % (0.0-1.5); FO2Hb 92.5 % (94-97); PATIENT TEMPERATURE 36.3; TOTAL HEMOGLOBIN 17.2 G/dl (14.0-17.9)
[2023-02-25 16:24] LABS: SODIUM,URINE RANDOM < 15 MEQ/L; TOTAL PROTEIN,URINE RANDOM 70.5 MG/DL
[2023-02-25 16:28] LABS: OXYGEN SATURATION (MIXED VEN) 63.8 % (60-80); PO2 MIXED VENOUS (TEMP COR) 37.9 mmHg (35-46)
[2023-02-25] MEDS ORDERED: LIDOcaine 1% 30ml preserv. free vial ONE (16:33)
[2023-02-25 16:44] LABS: UA EOSINOPHILS NO EOS /HPF
--- NOTE | 2023-02-25 17:15 | NUR ---
Lactic at 6.5; Dr. Campbell aware. Keep MAP >70. Also, MD aware that we cannot obtain a constant spo2 saturation; freq ABGs if unable to obtain accurate spo2. MD to place arterial line.
--- NOTE | 2023-02-25 18:18 | NUR ---
Problems reprioritized. Patient report given, questions answered & plan of care reviewed with Clover GOLDSTEIN.
[2023-02-25] MEDS: piperacillin/tazo 3.375gm/50 ML IV SCH (19:49)
[2023-02-25] MEDS: docusate sod 100mg capsule PO SCH (19:49)
[2023-02-25] MEDS: K and/or MAG REPLACEMENT MC SCH (20:00)
[2023-02-25] MEDS ORDERED: glucagon, human recombinant 1mg kit SUBCUT PRN (22:40)
[2023-02-25] MEDS ORDERED: dextrose 50%-water 50ml dispensing syringe IV PRN ×2 (22:40)
[2023-02-25] MEDS ORDERED: insulin Lispro (HumaLOG) vial - multi-dose SQ SCH (22:40)
[2023-02-25] MEDS ORDERED: DEXTROSE 15 GM of carb/4 tabs (each vial/BOTTLE has 4 tablets) PO PRN ×2 (22:40)
[2023-02-25] MEDS: vasopressin inj. 40 UNIT in normal saline 50ml IV soln 38 ML IV SCH (23:37)
[2023-02-26] VITALS (30 sets, daily range): BP systolic 70–127; BP diastolic 50–80
[2023-02-26] MEDS: NORepinephrine 8mg/ 250ml NS 250 ML IV SCH ×2 (03:00→11:57)
[2023-02-26 03:50] LABS: EOSINOPHILS % (AUTO) 0.1 % (0-6); LYMPHOCYTES # (AUTO) 0.3 X10'3 (1.1-4.8); LYMPHOCYTES % (AUTO) 3.4 % (21-51)
[2023-02-26 03:52] LABS: BASOPHILS % (AUTO) 0 % (0-1); HEMATOCRIT 51.9 % (42.0-52.0); HEMOGLOBIN 16.8 g/dl (14.0-17.9); MEAN CORPUSCULAR HGB CONC 32.3 g/dL (33.0-36.5); MEAN CORPUSCULAR VOLUME 89.8 FL (78-98); MEAN PLATELET VOLUME 9.5 FL (7.4-10.4); MONOCYTES # (AUTO) 0.5 X10'3 (0-0.9); MONOCYTES % (AUTO) 5.1 % (2-12); NEUTROPHILS # (AUTO) 8.2 X10'3 (1.8-7.7); NEUTROPHILS % (AUTO) 91.4 % (42-75); PLATELET COUNT 178 X10'3 (140-440); RED BLOOD COUNT 5.78 X10'6 (4.70-6.10); RED CELL DISTRIBUTION WIDTH 15.6 % (11.5-14.5)
[2023-02-26 04:03] LABS: ALANINE AMINOTRANSFERASE 1124 U/L (12-78); ALBUMIN 2.2 G/DL (3.4-5.0); ALBUMIN/GLOBULIN RATIO 0.9 (1.1-1.5); ALKALINE PHOSPHATASE 73 IU/L (46-116); ANION GAP 21 (8-16); ASPARTATE AMINO TRANSFERASE 734 U/L (10-37); BILIRUBIN,TOTAL 3.6 MG/DL (0.1-1.0); BLOOD UREA NITROGEN 100 MG/DL (7-18); BUN/CREATININE RATIO 22.7 (10.0-20.0); CALCIUM 7.1 MG/DL (8.5-10.1); CHLORIDE 92 MMOL/L (99-107); GLUCOSE 105 MG/DL (70-104); MAGNESIUM 2.2 MG/DL (1.5-2.4); PHOSPHORUS 8.5 MG/DL (2.3-4.5); POTASSIUM 5.5 MMOL/L (3.5-5.1); SODIUM 130 MMOL/L (135-145); TOTAL CARBON DIOXIDE 17.3 MMOL/L (24-32); TOTAL PROTEIN 4.6 G/DL (6.4-8.2); eGFR 14 ML/MIN
[2023-02-26 04:06] LABS: APTT 44 SECONDS (22-32)
[2023-02-26] MEDS: amiodarone/D5 360MG/200ML BAG 200 ML IV SCH ×4 (04:28→16:07)
[2023-02-26 04:51] LABS: NUCLEATED RED BLOOD CELLS 8 /100WBC (0-0); PLATELET ESTIMATE NORMAL; TOTAL CELLS COUNTED 100
[2023-02-26 04:52] LABS: BURR CELLS 3+
[2023-02-26] MEDS: HYDROmorphone 1 mg/ml syringe IV PRN ×2 (05:01→09:00)
[2023-02-26] MEDS: normal saline 1000ml 1,000 ML IV SCH ×2 (05:30→12:10)
[2023-02-26] MEDS ORDERED: VANCOMYCIN LEVEL IV ONE (07:05)
[2023-02-26] MEDS ORDERED: vancomycin/NS 1 GM ADD-VANTAGE 250 ML IV PRN (07:10)
--- NOTE | 2023-02-26 07:45 | NUR ---
Critical Lactic Acid 9.0; Dr. Kramer rounding and notified. Also, MD aware of elevated Creatinine levels and inability to draw a repeat ABG. Will place arterial line. Normal saline bolus x1 Liter. Patient appears to be more mottled and cyanotic.
[2023-02-26] MEDS ORDERED: pantoprazole 40MG/NS 100ML BAG 100 ML IV SCH (08:00)
[2023-02-26] MEDS: K and/or MAG REPLACEMENT MC SCH ×2 (08:00→20:00)
[2023-02-26 08:22] LABS: ABG BASE EXCESS -16.8 mmol/L (-2.0-2.0); ABG HCO3 9.1 mmol/L (22.0-26.0); ABG OXYGEN SATURATION 88.7 % (94-97); ABG PCO2 (T) 23.4 mmHg (35.0-48.0); ABG PO2 (T) 64.6 mmHg (75.0-100.0); FCOHb 0.7 % (0.0-3.9); FMetHb 0.4 % (0.0-1.5); FO2Hb 87.7 % (94-97); PATIENT TEMPERATURE 36.8; TOTAL HEMOGLOBIN 16.7 G/dl (14.0-17.9)
[2023-02-26] MEDS ORDERED: normal saline 1000ml 1,000 ML IVB ONE (08:30)
[2023-02-26] MEDS: docusate sod 100mg capsule PO SCH ×2 (09:07→20:00)
[2023-02-26] MEDS: piperacillin/tazo 3.375gm/50 ML IV SCH ×2 (09:07→20:33)
[2023-02-26] MEDS: SODIUM BICARB 150mEq/D5W 1L 1,000 ML IV SCH ×5 (09:27→22:48)
[2023-02-26] MEDS ORDERED: DOBUTamine-DoBUTrex 500mg/D5W 250 ML IV SCH (10:15)
--- NOTE | 2023-02-26 10:30 | NUR ---
Patient continued to decompensate with increased work of breathing and decreased blood pressure. Daughter called to notify of change in status. Per daughter, her father would not like any extreme measures but wants him to be intubated and stabilized until she is able to fly from [place] to [place]. Patient subsequently intubated with Rocuronium and Etomidate. Patient's sister also at bedside and agrees with change of code status to limited code with no chest compressions with the plan to withdraw care in the once family arrives. Patient's blood pressure remains hypotensive despite max Levophed and Vasopressin dose. Orders for x1 AMP of Bicarb and start Dobutamine.
[2023-02-26 10:35] LABS: ABG BASE EXCESS -23.1 mmol/L (-2.0-2.0); ABG HCO3 7.9 mmol/L (22.0-26.0); ABG OXYGEN SATURATION 99.4 % (94-97); ABG PCO2 (T) 33.5 mmHg (35.0-48.0); FCOHb 0.5 % (0.0-3.9); FMetHb 0.7 % (0.0-1.5); FO2Hb 98.2 % (94-97); PATIENT TEMPERATURE 36.6; PEEP 10 cm H2O; RESPIRATORY RATE 16 b/min; TIDAL VOLUME 550 mL
[2023-02-26] MEDS ORDERED: sodium bicarbonate (8.4%) 1 mEq/ml syringe IV ONE (10:45)
[2023-02-26] MEDS ORDERED: sodium bicarbonate (8.4%) inj. 1 MEQ/ML ML IV ONE ×2 (10:45→13:10)
[2023-02-26] MEDS ORDERED: sodium bicarbonate (8.4%) inj. 1 MEQ/ML ML ONE (10:45)
--- NOTE | 2023-02-26 11:11 | NUR ---
F/u: Pt intubated this morning. TF recs placed below are most appropriate to meet estimated nutrient needs and minimize volume and electrolyte administration for if expected prolonged intubation and to receive nutrition support. Will continue to follow closely. Recommendations: 1) IF TF, continuous Pivot 1.5 with 65 mL/hr goal rate. Begin at 25 mL/hr and advance by 20 mL Q8H as tolerated to goal rate. To provide 1560 mL total volume/day, 2340 kcal, 146 g protein, and 1184 mL water. 2) IF TF, no additional water flush in view of hyponatremia and renal status; monitor serum Na 3) IF TF, prealbumin q Wednesday/; daily scaled weights 4) Routine bowel care Addendum: 02/26/23 at [address] Amended: Links added.
[2023-02-26] MEDS: dexmedetomidin/NS 400mcg/100ml 100 ML IV SCH (11:15)
[2023-02-26] MEDS: FENTANYL-0.9 % NACL/PF 100 ML IV PRN (11:15)
--- NOTE | 2023-02-26 11:40 | NUR ---
Critical Lactic Acid of 12.4; Dr. Kramer notified. Will continue to stabilize until family arrives.
[2023-02-26] MEDS ORDERED: vancomycin inj 500 MG in normal saline 100ml IV soln 100 ML IV SCH (12:00)
[2023-02-26 12:32] LABS: ABG BASE EXCESS -19.7 mmol/L (-2.0-2.0); ABG HCO3 9.4 mmol/L (22.0-26.0); ABG OXYGEN SATURATION 97.9 % (94-97); ABG PCO2 (T) 32.4 mmHg (35.0-48.0); ABG PO2 (T) 133.4 mmHg (75.0-100.0); FCOHb 0.5 % (0.0-3.9); FMetHb 0.6 % (0.0-1.5); FO2Hb 96.8 % (94-97); PATIENT TEMPERATURE 36.6; PEEP 5 cm H2O; RESPIRATORY RATE 20 b/min; TIDAL VOLUME 550 mL; TOTAL HEMOGLOBIN 16.2 G/dl (14.0-17.9)
[2023-02-26] MEDS: vasopressin inj. 40 UNIT in normal saline 50ml IV soln 38 ML IV SCH (13:13)
[2023-02-26] MEDS: NORepinephrine 32 MG in Normal Saline 250ml IV soln IV SCH ×2 (13:20→19:18)
--- NOTE | 2023-02-26 18:12 | NUR ---
Problems reprioritized. Patient report given, questions answered & plan of care reviewed with Clover GOLDSTEIN.
[2023-02-26 19:03] LABS: TOXIC VACUOLATION 1+
[2023-02-26 19:05] LABS: LARGE PLATELETS FEW
[2023-02-26] MEDS ORDERED: insulin glargine (Lantus) pen - multi-dose SQ SCH (21:00)
[2023-02-27] VITALS (9 sets, daily range): BP systolic 46–104; BP diastolic 38–64
[2023-02-27] MEDS: dexmedetomidin/NS 400mcg/100ml 100 ML IV SCH (00:59)
[2023-02-27] MEDS: NORepinephrine 32 MG in Normal Saline 250ml IV soln IV SCH (01:00)
[2023-02-27] MEDS: FENTANYL-0.9 % NACL/PF 100 ML IV PRN (01:16)
[2023-02-27] MEDS ORDERED: VANCOMYCIN LEVEL IV SCH (03:00)
[2023-02-27 03:18] LABS: HEMOGLOBIN 14.7 g/dl (14.0-17.9); MEAN CORPUSCULAR HEMOGLOBIN 28.9 PG (27.0-31.0); MEAN PLATELET VOLUME 9.3 FL (7.4-10.4)
[2023-02-27 03:20] LABS: MEAN CORPUSCULAR HGB CONC 31.4 g/dL (33.0-36.5); PLATELET COUNT 119 X10'3 (140-440); RED BLOOD COUNT 5.11 X10'6 (4.70-6.10); RED CELL DISTRIBUTION WIDTH 16.4 % (11.5-14.5)
[2023-02-27 03:38] LABS: ALBUMIN 1.7 G/DL (3.4-5.0); ALKALINE PHOSPHATASE 95 IU/L (46-116); ANION GAP 25 (8-16); BILIRUBIN,TOTAL 5.1 MG/DL (0.1-1.0); BLOOD UREA NITROGEN 99 MG/DL (7-18); BUN/CREATININE RATIO 17.5 (10.0-20.0); CALCIUM 6.1 MG/DL (8.5-10.1); CHLORIDE 91 MMOL/L (99-107); CREATININE 5.65 MG/DL (0.60-1.10); GLUCOSE 99 MG/DL (70-104); MAGNESIUM 2.5 MG/DL (1.5-2.4); SODIUM 128 MMOL/L (135-145); VANCOMYCIN,RANDOM 15.5 UG/ML; eGFR 10 ML/MIN
[2023-02-27 03:58] LABS: POTASSIUM 7.8 MMOL/L (3.5-5.1)
[2023-02-27 03:59] LABS: ALBUMIN/GLOBULIN RATIO 0.9 (1.1-1.5); PHOSPHORUS 12.9 MG/DL (2.3-4.5); TOTAL CARBON DIOXIDE 11.8 MMOL/L (24-32); TOTAL PROTEIN 3.6 G/DL (6.4-8.2)
[2023-02-27 04:00] LABS: ALANINE AMINOTRANSFERASE 1792 U/L (12-78)
--- NOTE | 2023-02-27 04:07 | NUR ---
Daughters at bedside for several hours. spoken with family repeatedly regarding pt's rapidly failing condition and their wishes to wait until "morning" to transition to comfort care. pt has frequent episodes of myoclonic activity of arms and legs, BPS 46 - 55. Revisited possibility of pt expiring prior to being transitioned to comfort care which may require defibrillation according to the pt's code status. Daughters repeatedly verbalize understanding of information given, but remain steadfast in their desire to continue to prolong pt's current status until later in the morning.
[2023-02-27 04:17] LABS: ASPARTATE AMINO TRANSFERASE 3911 U/L (10-37)
[2023-02-27 04:24] LABS: BURR CELLS 3+; LARGE PLATELETS FEW; NUCLEATED RED BLOOD CELLS 23 /100WBC (0-0); PLATELET ESTIMATE DECREASED; POLYCHROMASIA FEW; TOTAL CELLS COUNTED 100; TOXIC VACUOLATION 2+
[2023-02-27 04:31] LABS: WHITE BLOOD COUNT 15.9 X10'3 (4.5-11.0)
--- NOTE | 2023-02-27 04:35 | NUR ---
Call to Dr. Osman to report critical K+ and CO2 levels. on video monitor to talk with family. Explained need to make decision regarding moving forward with HD/CVVH. Daughters state they do not want dialysis, however, they are not ready to transition to comfort care.
[2023-02-27 04:38] LABS: APTT 69 SECONDS (22-32)
[2023-02-27] MEDS: amiodarone/D5 360MG/200ML BAG 200 ML IV SCH (04:49)
[2023-02-27] MEDS: SODIUM BICARB 150mEq/D5W 1L 1,000 ML IV SCH (05:12)
--- NOTE | 2023-02-27 05:40 | NUR ---
ED MD called to bedside. Pt with agonal heart rhythm and BPS of 30-35. Daughters at bedside requesting orders for comfort care at this time. ED MD advises call to on-call owner consulting engineer.
--- NOTE | 2023-02-27 05:50 | NUR ---
Call to Dr. Osman to report changes in BP and HR. Orders noted for comfort care and nurse to pronounce.
--- NOTE | 2023-02-27 05:55 | NUR ---
RT at bedside to extubate, IV's DC'd at this time
--- NOTE | 2023-02-27 06:11 | NUR ---
RN IS TO DOCUMENT YES TO ALL APPLICABLE AREAS Pronouncement of : 1. Time Physician Notified: [id number] 2. Date of :02/27/2023 3. Time of : 607 4. DNR/Withdraw life support documented:yes 5. Monitor strip has been placed on chart: yes 6. Assessment process is of one-minute duration and includes following criteria: a) Patient is unresponsive to all stimuli: yes b) Pupils fixed and non-reactive:yes c) Auscultation of precordium reveals absence of heart tones:yes d) Auscultation of lungs reveals absence of breath sounds:yes e) Absence of blood pressure / all vital signs:yes f) QRS complexes are not present on monitor / EKG strip:no g) Pacer spikes without capture:na 4. Comments: daughters at bedside
--- NOTE | 2023-02-27 06:15 | NUR ---
Patient in room CICU 2007. I have received report from Clover GOLDSTEIN and had the opportunity to ask questions and assume patient care.
--- NOTE | 2023-02-27 07:49 | NUR ---
[facility] called. Reference # [id number]. Dr. Kramer informed of patients time of 0608.
--- NOTE | 2023-02-27 08:00 | NUR ---
[employer] called to parts picker pt. Daughters took patients belongings home-blanket, chain necklace, and underwear.
--- NOTE | 2023-02-27 09:54 | NUR ---
Patient picked up by [facility] personnel.
== END 2023-02-27 09:55 | DRG 871 ==
LOC: ER 16:45 → ED HOLD 02-25 09:02 → CICU 2S 02-25 10:03
PROVIDERS: ADMIT Internal Medicine Critical Care Medicine; ATTEND Internal Medicine Critical Care Medicine
PROC: 30233K1 Transfusion of Nonautologous Frozen Plasma into Peripheral Vein, Percutaneous Approach (ICD-10-PCS; 2023-02-25)
PROC: 0W9G3ZZ Drainage of Peritoneal Cavity, Percutaneous Approach (ICD-10-PCS; 2023-02-25)
PROC: 02HV33Z Insertion of Infusion Device into Superior Vena Cava, Percutaneous Approach (ICD-10-PCS; 2023-02-25)
PROC: B548ZZA Ultrasonography of Superior Vena Cava, Guidance (ICD-10-PCS; 2023-02-25)
PROC: 5A1935Z Respiratory Ventilation, Less than 24 Consecutive Hours (ICD-10-PCS; principal; 2023-02-26)
PROC: 0BH17EZ Insertion of Endotracheal Airway into Trachea, Via Natural or Artificial Opening (ICD-10-PCS; 2023-02-26)
PROC: 03HY32Z Insertion of Monitoring Device into Upper Artery, Percutaneous Approach (ICD-10-PCS; 2023-02-26)
DX: A41.9 Sepsis, unspecified organism (principal); G92.8 Other toxic encephalopathy; K65.2 Spontaneous bacterial peritonitis; R65.21 Severe sepsis with septic shock; J96.01 Acute respiratory failure with hypoxia; K72.00 Acute and subacute hepatic failure without coma; K85.90 Acute pancreatitis without necrosis or infection, unspecified; N17.0 Acute kidney failure with tubular necrosis; D68.9 Coagulation defect, unspecified; K86.1 Other chronic pancreatitis; E87.20 Acidosis, unspecified; E87.5 Hyperkalemia; I48.0 Paroxysmal atrial fibrillation; Z51.5 Encounter for palliative care; Z66 Do not resuscitate; F17.210 Nicotine dependence, cigarettes, uncomplicated; I50.9 Heart failure, unspecified; F10.20 Alcohol dependence, uncomplicated; I11.0 Hypertensive heart disease with heart failure; J44.9 Chronic obstructive pulmonary disease, unspecified; K70.31 Alcoholic cirrhosis of liver with ascites; Z82.5 Family history of asthma and other chronic lower respiratory diseases; Z83.3 Family history of diabetes mellitus; Z79.899 Other long term (current) drug therapy
CPT/HCPCS: 36415; 36430; 36600; 49083; 71045; 74176; 76700; 76770; 80053; 80076; 80202; 80305; 80320; 81001; 82570; 82803; 82810; 82948; 83605; 83690; 83735; 84100; 84145; 84156; 84300; 85007; 85018; 85025; 85610; 85730; 86885; 86900; 86901; 87040; 87070; 87077; 87081; 87088; 87186; 87207; 93306; 94002; 94760; 99285; A4333; A4615; A6449; C1751; C9113; G0378; J0282; J1170; J1250; J1815; J2270; J2405; J2543; J3010; J3370; J3490; J7030; J7040; J7050; P9059